=== PATIENT | female | born 1970 | race Caucasian/White ===

== ENCOUNTER 2021-04-01 16:14 | Emergency (ER) | payer OTHER, SELFPAY ==
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
[2021-04-01 16:27] VITALS: BP 169/96; PULSE 74; RESP 18; TEMP 36.8; O2SAT 100; BMI 28.4
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
--- NOTE | 2021-04-01 17:40 | PC.NURSE ---
waiting for ct results, pt aox4, collar remains in place
[2021-04-01] MEDS: Acetaminophen 325 MG TABLET 650 MG PO (18:09)
== END 2021-04-01 18:29 | disposition home or self-care (01) ==
PROVIDERS: Emergency Provider Emergency Medicine
DX: S13.4XXA Sprain of ligaments of cervical spine, initial encounter (principal); V43.62XA Car passenger injured in collision with other type car in traffic accident, initial encounter; R51.9 Headache, unspecified; Y93.89 Activity, other specified; Y92.413 State road as the place of occurrence of the external cause; Y99.9 Unspecified external cause status
CPT/HCPCS: 70450; 72125; 99283; 99284